=== PATIENT | female | born 1950 | race Caucasian/White ===

== ENCOUNTER 2018-04-18 14:21 | Day surgery (SDC) | payer MEDICARE ==
[2018-04-18] VITALS (8 sets, daily range): BP systolic 117–150; BP diastolic 60–75
[~2018-04-18] VITALS: Ht 157.5 cm; Wt 69.9 kg
[~2018-04-18 14:21] MED LIST: ALPR-624 PO; BUSP5TAB3 PO; DULO-31 PO; HCTZ PO; LANTUS SQ; LEVO112T5 PO; LIRA0.6P2 SUBCUT; LOSARTAN PO; OXYC-150 PO; RANI150T44 PO
[2018-04-18] MEDS ORDERED: LORazepam 0.5 MG tablet PO PRN (14:50)
[2018-04-18] MEDS ORDERED: diphenhydrAMINE 25mg capsule PO PRN (14:50)
[2018-04-18] MEDS ORDERED: normal saline 1000ml 1,000 ML IV SCH (14:50)
[2018-04-18] MEDS ORDERED: CILO50TA PO (15:25)
[2018-04-18] MEDS ORDERED: SIMV20TA5 PO (15:25)
[2018-04-18] MEDS ORDERED: ACET-2615 PO (15:25)
[2018-04-18] MEDS ORDERED: LOSA1TAB39 PO (15:25)
[2018-04-18] MEDS ORDERED: NITR0.4T51 SL (15:25)
[2018-04-18] MEDS ORDERED: METO25TA6 PO (15:25)
[2018-04-18] MEDS ORDERED: LIDOcaine 1% (10mg/ml)w/preservative injection 20ml MDV ONE (16:18)
[2018-04-18] MEDS ORDERED: iohexol 350MG/ML 100ml bottle IV ONE (16:18)
[2018-04-18] MEDS ORDERED: fentaNYL/PF 50MCG/1 ML 2ML syringe ONE (16:19)
[2018-04-18] MEDS ORDERED: midazolam 2 mg/2 ml injection ONE (16:19)
[2018-04-18] MEDS ORDERED: proCHLORperazine 10 MG/2 ml inj IV PRN (17:50)
[2018-04-18] MEDS ORDERED: HYDROcodone/acetaminophen 5mg/325mg tablet PO PRN (17:50)
[2018-04-18] MEDS ORDERED: HYDROcodone/acetaminophen 10/325mg tab PO PRN (17:50)
[2018-04-18] MEDS ORDERED: ondansetron/PF 4mg/2ml inj IV PRN (17:50)
[2018-04-18] MEDS ORDERED: OXAZEpam 15mg capsule PO PRN (17:50)
== END 2018-04-18 20:25 | disposition home or self-care (01) ==
LOC: SSTAY O 14:21
PROVIDERS: ATTEND Internal Medicine Interventional Cardiology
DX: I25.10 Atherosclerotic heart disease of native coronary artery without angina pectoris (principal); I10 Essential (primary) hypertension; E11.9 Type 2 diabetes mellitus without complications; E78.5 Hyperlipidemia, unspecified; F17.210 Nicotine dependence, cigarettes, uncomplicated; J44.9 Chronic obstructive pulmonary disease, unspecified; K21.9 Gastro-esophageal reflux disease without esophagitis; M19.90 Unspecified osteoarthritis, unspecified site; E89.0 Postprocedural hypothyroidism; F32.9 Major depressive disorder, single episode, unspecified; Z86.79 Personal history of other diseases of the circulatory system; Z96.3 Presence of artificial larynx; Z72.89 Other problems related to lifestyle; Z90.49 Acquired absence of other specified parts of digestive tract; Z79.891 Long term (current) use of opiate analgesic; Z79.4 Long term (current) use of insulin; Z85.850 Personal history of malignant neoplasm of thyroid; Z86.73 Personal history of transient ischemic attack (TIA), and cerebral infarction without residual deficits; Z79.899 Other long term (current) drug therapy; Z88.8 Allergy status to other drugs, medicaments and biological substances
CPT/HCPCS: 82948; 93005; 93458; 99152; A6257; J1644; J2001; J2250; J3010; J7030; Q0163; Q9967; A4620; C1769

== ENCOUNTER 2021-02-04 13:27 | Observation (INO) | payer MEDICARE ==
[~2021-02-04] VITALS: Ht 157.5 cm; Wt 67.3 kg
[~2021-02-04 13:27] MED LIST changes: +ACET-2615 PO; -ALPR-624 PO; +CILO50TA PO; -HCTZ PO; +LOP25T PO; +LOSA1TAB39 PO; -LOSARTAN PO; +NITR0.4T51 SL; -OXYC-150 PO; -RANI150T44 PO; +SIMV-42 PO
[2021-02-04 14:27] LABS: BASOPHILS # (AUTO) 0.1 X10'3 (0-0.2); BASOPHILS % (AUTO) 0.8 % (0-1); EOSINOPHILS # (AUTO) 0.2 X10'3 (0-0.9); EOSINOPHILS % (AUTO) 2.1 % (0-6); HEMATOCRIT 37.5 % (35.0-45.0); HEMOGLOBIN 12.7 g/dl (12.0-16.0); LYMPHOCYTES # (AUTO) 3.2 X10'3 (1.1-4.8); LYMPHOCYTES % (AUTO) 35.2 % (21-51); MEAN CORPUSCULAR HEMOGLOBIN 31.3 PG (27.0-31.0); MEAN CORPUSCULAR HGB CONC 33.8 g/dL (33.0-36.5); MEAN CORPUSCULAR VOLUME 92.8 FL (78-98); MEAN PLATELET VOLUME 7.5 FL (7.4-10.4); MONOCYTES # (AUTO) 0.7 X10'3 (0-0.9); NEUTROPHILS # (AUTO) 4.9 X10'3 (1.8-7.7); NEUTROPHILS % (AUTO) 53.9 % (42-75); PLATELET COUNT 236 X10'3 (140-440); RED BLOOD COUNT 4.04 X10'6 (4.20-5.60); RED CELL DISTRIBUTION WIDTH 13.5 % (11.5-14.5)
[2021-02-04 14:35] LABS: ALANINE AMINOTRANSFERASE 39 U/L (12-78); ALBUMIN 3.6 G/DL (3.4-5.0); ALBUMIN/GLOBULIN RATIO 1.3 (1.1-1.5); ALKALINE PHOSPHATASE 89 IU/L (46-116); ANION GAP 9 (8-16); ASPARTATE AMINO TRANSFERASE 21 U/L (10-37); BILIRUBIN,TOTAL 0.5 MG/DL (0.1-1.0); BLOOD UREA NITROGEN 13 MG/DL (7-18); BUN/CREATININE RATIO 17.8 (6.6-38.0); CALCIUM 7.8 MG/DL (8.5-10.1); CHLORIDE 109 MMOL/L (99-107); CREATININE 0.73 MG/DL (0.40-0.90); GLUCOSE 108 MG/DL (70-104); POTASSIUM 4.2 MMOL/L (3.5-5.1); SODIUM 143 MMOL/L (135-145); TOTAL CARBON DIOXIDE 24.8 MMOL/L (24-32); TOTAL PROTEIN 6.4 G/DL (6.4-8.2); eGFR 78 ML/MIN
[2021-02-04] MEDS ORDERED: magnesium 4gm in 100ml NS 100 ML IV PRN (17:45)
[2021-02-04] MEDS ORDERED: bisacodyl 10mg suppository rectal RC PRN (17:45)
[2021-02-04] MEDS ORDERED: magnesium Cl slow-release 64mg tablet PO PRN (17:45)
[2021-02-04] MEDS ORDERED: HYDROcodone/acetaminophen 10/325mg tab PO PRN (17:45)
[2021-02-04] MEDS ORDERED: nitroGLYCERIN 0.4mg SUBLingual tab SL PRN ×2 (17:45)
[2021-02-04] MEDS ORDERED: HYDROcodone/acetaminophen 5mg/325mg tablet PO PRN (17:45)
[2021-02-04] MEDS ORDERED: ondansetron/PF 4mg/2ml inj IV PRN (17:45)
[2021-02-04] MEDS ORDERED: metoprolol tartrate 1mg/ml inj IV PRN (17:45)
[2021-02-04] MEDS ORDERED: potassium Cl 20 mEq SR tablet PO PRN ×2 (17:45)
[2021-02-04] MEDS: normal saline 1000ml 1,000 ML IV SCH (17:45)
[2021-02-04] MEDS ORDERED: mag hydrox/Alum hydrox/simeth 30ml oral suspension PO PRN (17:45)
[2021-02-04] MEDS ORDERED: acetaminophen 325mg tablet PO PRN ×2 (17:45)
[2021-02-04] MEDS ORDERED: metoclopramide 5 mg/ml inj IV PRN (17:45)
[2021-02-04] MEDS ORDERED: aminophylline 250mg/10ml inj. IV PRN (17:45)
[2021-02-04] MEDS ORDERED: potassium Cl 40MEQ/1/2NS 520ml 520 ML IV PRN ×2 (17:45)
[2021-02-04] MEDS ORDERED: magnesium hydroxide 30ml (MOM) UD suspension PO PRN (17:45)
[2021-02-04] MEDS ORDERED: regadenoson 0.4mg/5ml syringe IV PRN (17:45)
[2021-02-04] MEDS ORDERED: morphine 2 MG/ML inj. syringe IV PRN ×2 (17:45)
[2021-02-04] MEDS ORDERED: magnesium 2GM in 50ml NS 50 ML IV PRN (17:45)
[2021-02-04] MEDS ORDERED: insulin Lispro (HumaLOG) vial - multi-dose SQ SCH (17:50)
[2021-02-04] MEDS ORDERED: glucagon, human recombinant 1mg kit SUBCUT PRN (17:50)
[2021-02-04] MEDS ORDERED: dextrose 50%-water 50ml dispensing syringe IV PRN ×2 (17:50)
[2021-02-04] MEDS ORDERED: MESSAGE TO PHARMACY PO ONE (17:50)
[2021-02-04] MEDS ORDERED: dextrose ORAL solution 15 GM/59 ML bottle PO PRN ×2 (17:50)
[2021-02-04] MEDS ORDERED: iohexol 300mg/ml 100ml inj. ONE (18:40)
[2021-02-04] MEDS ORDERED: ATOR-2 PO (18:42)
[2021-02-04] MEDS ORDERED: BUSP10TA11 PO ×2 (18:42)
[2021-02-04] MEDS ORDERED: CARV-50 PO (18:42)
[2021-02-04] MEDS ORDERED: LEVO88TA2 PO (18:42)
[2021-02-04 19:51] LABS: HEMOGLOBIN A1C 6.8 % (4.5-6.2)
[2021-02-04] MEDS: K and/or MAG REPLACEMENT MC SCH (20:00)
[2021-02-04] MEDS: docusate sod 100mg capsule PO SCH (20:00)
[2021-02-04] MEDS ORDERED: insulin glargine (Lantus) pen - multi-dose SQ SCH (21:00)
[2021-02-04] MEDS ORDERED: Melatonin 3mg tablet PO SCH (21:00)
[2021-02-04] MEDS ORDERED: amLODIPine 5mg tablet PO ONE (22:00)
[2021-02-04] MEDS: metoprolol tartrate 12.5mg (1/2 tablet) PO SCH (22:18)
[2021-02-05] VITALS (7 sets, daily range): BP systolic 130–169; BP diastolic 63–83
[2021-02-05] MEDS ORDERED: ALPRAZolam 0.5mg tablet PO ONE (00:50)
--- NOTE | 2021-02-05 00:52 | NUR ---
dr nunn called and received verbal order for xanax 1 time. vital signs stable.
[2021-02-05 01:45] LABS: HEMATOCRIT 39.3 % (35.0-45.0); HEMOGLOBIN 13.5 g/dl (12.0-16.0); MEAN CORPUSCULAR HEMOGLOBIN 31.4 PG (27.0-31.0); MEAN CORPUSCULAR HGB CONC 34.3 g/dL (33.0-36.5); MEAN CORPUSCULAR VOLUME 91.6 FL (78-98); MEAN PLATELET VOLUME 7.3 FL (7.4-10.4); PLATELET COUNT 222 X10'3 (140-440); RED BLOOD COUNT 4.29 X10'6 (4.20-5.60); RED CELL DISTRIBUTION WIDTH 13.7 % (11.5-14.5); WHITE BLOOD COUNT 9.8 X10'3 (4.5-11.0)
[2021-02-05 02:06] LABS: ALBUMIN 3.5 G/DL (3.4-5.0); ANION GAP 8 (8-16); BLOOD UREA NITROGEN 13 MG/DL (7-18); BUN/CREATININE RATIO 16.5 (6.6-38.0); CALCIUM 7.9 MG/DL (8.5-10.1); CHLORIDE 109 MMOL/L (99-107); CHOL/HDL RATIO 3.2 (0.00-4.99); CHOLESTEROL 127 MG/DL (0-200); CREATININE 0.79 MG/DL (0.40-0.90); GLUCOSE 110 MG/DL (70-104); HDL CHOLESTEROL 40 MG/DL (35-60); LDL CHOLESTEROL 54 MG/DL (50-100); POTASSIUM 3.7 MMOL/L (3.5-5.1); SODIUM 143 MMOL/L (135-145); TOTAL CARBON DIOXIDE 26.1 MMOL/L (24-32); TRIGLYCERIDES 188 MG/DL (20-135); eGFR 72 ML/MIN
[2021-02-05] MEDS: K and/or MAG REPLACEMENT MC SCH (08:00)
[2021-02-05] MEDS ORDERED: enoxaparin 40mg/0.4ml syringe SUBCUT SCH (08:00)
[2021-02-05] MEDS: docusate sod 100mg capsule PO SCH (08:00)
[2021-02-05] MEDS ORDERED: aspirin 325mg tablet, delayed-release (Ecotrin) PO SCH (08:00)
[2021-02-05] MEDS: normal saline 1000ml 1,000 ML IV SCH (08:03)
--- NOTE | 2021-02-05 08:29 | NUR ---
TO [facility] PER WC WITH PORTABLE MONITOR INTACT.
[2021-02-05] MEDS: metoprolol tartrate 12.5mg (1/2 tablet) PO SCH (10:58)
[2021-02-05] MEDS ORDERED: nitroGLYCERIN 0.4mg SUBLingual tab SL PRN (13:25)
--- NOTE | 2021-02-05 17:12 | NUR ---
PAGER ID: [phone] MESSAGE: Re: ChrisDarlene escalera. Room: 3013A. Pt's Nicki scan has resulted. -[facility] #[id number] -Dr. Molina paged concerning Pt's nicki results.
[2021-02-05] MEDS ORDERED: ASPI-1071 PO (17:24)
[2021-02-05] MEDS ORDERED: carVEDilol 12.5mg tablet PO SCH (17:30)
--- NOTE | 2021-02-05 18:30 | NUR ---
Problems reprioritized. Patient report given, questions answered & plan of care reviewed with Abbie PAT.
--- NOTE | 2021-02-05 19:00 | NUR ---
Pt DC'd home with friends. Pt alert and oriented and vitals WNL upon DC. Per Dr. Molina; Pt is stable fo DC. IV removed, canula intact. Tele-box removed and returned to tele-tech. DC paperwork printed out and gone over with Pt. Allowed Pt to ask questions concerning DC and then answered them. Pt stated that she will make a follow up appt with her PCP and Dr. Ma within the week. New prescriptions called into [facility] in [place]. Pt's belongings gathered and sent with Pt. Pt wheeled down to lobby in wheelchair. Pt left in private vehicle with friends for home.
[2021-02-05] MEDS ORDERED: atorvastatin 20mg tablet PO SCH (21:00)
[2021-02-05] MEDS ORDERED: insulin glargine (Lantus) pen - multi-dose SQ SCH (21:00)
[2021-02-05] MEDS ORDERED: busPIRone 5mg tablet PO SCH (21:00)
[2021-02-06] MEDS ORDERED: LIRAGLUTIDE 0.6 MG/0.1 ML PEN.INJCTR SQ SCH (08:00)
[2021-02-06] MEDS ORDERED: busPIRone 5mg tablet PO SCH (08:00)
[2021-02-06] MEDS ORDERED: levoTHYROXINE 88mcg tablet PO SCH (08:00)
[2021-02-06] MEDS ORDERED: duloxetine 30mg CAPSULE.DR PO SCH (08:00)
== END 2021-02-05 19:00 | disposition home or self-care (01) ==
LOC: ER 13:27 → ED HOLD 17:47 → PCU 3S 02-05 14:41
PROVIDERS: ADMIT Family Medicine; ATTEND Family Medicine
DX: I25.119 Atherosclerotic heart disease of native coronary artery with unspecified angina pectoris (principal); E11.9 Type 2 diabetes mellitus without complications; E78.5 Hyperlipidemia, unspecified; E89.0 Postprocedural hypothyroidism; J44.9 Chronic obstructive pulmonary disease, unspecified; F32.9 Major depressive disorder, single episode, unspecified; I10 Essential (primary) hypertension; Z85.850 Personal history of malignant neoplasm of thyroid; Z95.1 Presence of aortocoronary bypass graft; Z90.49 Acquired absence of other specified parts of digestive tract; Z79.899 Other long term (current) drug therapy; Z88.8 Allergy status to other drugs, medicaments and biological substances
CPT/HCPCS: 36415; 71045; 71260; 78452; 80048; 80053; 80061; 82948; 83036; 83735; 83880; 84443; 84484; 85025; 85027; 87081; 93005; 93017; 93306; 96360; 96361; 96372; 99285; A9500; G0378; J2785; J7030; Q9967; J1650; J1815